=== PATIENT | male | born 1990 | race Caucasian/White ===

== ENCOUNTER 2018-12-23 03:06 | Emergency (ER) | payer SELFPAY ==
[~2018-12-23] VITALS: Ht 180.3 cm; Wt 79.5 kg
[2018-12-23 03:10] VITALS: BP 140/87; TEMP 97.8
[2018-12-23] MEDS ORDERED: NORCO 325 MG-51 TAB PO (04:15)
[2018-12-23 04:25] VITALS: PULSE 108
== END 2018-12-23 04:25 | disposition home or self-care (01) ==
LOC: COL.ER 03:06
DX: K02.9 Dental caries, unspecified (principal); F17.210 Nicotine dependence, cigarettes, uncomplicated
CPT/HCPCS: J0561; J1885